=== PATIENT | male | born 1975 | race Caucasian/White ===

== ENCOUNTER 2018-11-28 17:04 | Emergency (ER) | payer OTHER ==
[2018-11-28] MEDS: LIDOCAINE 2% (MDV) 20 ML INJ INJ (20:04)
[2018-11-28] MEDS: KETOROLAC 30 MG INJ IM (20:05)
== END 2018-11-28 22:41 | disposition home or self-care (01) ==
LOC: FTE 17:04
DX: L02.31 Cutaneous abscess of buttock (principal); E11.9 Type 2 diabetes mellitus without complications; Z79.4 Long term (current) use of insulin
CPT/HCPCS: 10060; 96372; 99284-25